=== PATIENT | male | born 1960 | race Caucasian/White ===

== ENCOUNTER 2016-09-02 20:46 | Emergency (ER) | payer OTHER ==
--- NOTE | ~2016-09-02 | EKG ---
PATIENT: GERALDINE JONES UNIT #: [id number] Ventricular Rate: 87 BPM Atrial Rate: 87 BPM P-R Interval: 182 ms QRS Duration: 90 ms Q-T Interval: 380 ms QTC Calculation(Bezet): 457 ms P [place]: 74 degrees Calculated R [place]: -28 degrees Calculated T [place]: 46 degrees Diagnosis Line: Normal sinus rhythm Diagnosis Line: Normal ECG Diagnosis Line: When compared with ECG of 10-OCT-2015 09:10, Diagnosis Line: No significant change was found Diagnosis Line: Confirmed by JERALD LOCKETT MD ([id number]) on 09/05/2016 Diagnosis Line: 4:01:09 PM INTERPRETING MD: CATHRYN MCDOWELL
--- NOTE | ~2016-09-02 | CR72 ---
[facility] A Service of [facility] & [facility] RADIOLOGY TEXT RESULTS PATIENT: GERALDINE JONES LOCATION: [facility] : 60 UNIT #: [id number] AGE: [address]: Court Goldstein MD SEX: M ORDER DR: [id number] [facility] [address] [place], [place] [address] [id number] E MR#: [id number] Acc #: [id number] NAME: GERALDINE JONES : 1960 SEX: M STUDY DATE/TIME: 09/02/2016 19:18 UNIT: [facility] ROOM: STUDY DESCRIPTION: CR Chest Single View Portable Attending Physician: Court Goldstein M.D. Ordering Physician: Court Goldstein M.D. MEDICAL IMAGING REPORT This report is preliminary unless electronic signature is present EXAM Portable chest 09/02/2016 HISTORY Chest pain and shortness of breath for 1 week with left leg numbness today and slurred speech. FINDINGS A single AP portable view of the chest shows both lungs to be clear. The heart is normal in size. The mediastinal contour is normal. No significant bone abnormalities are seen. IMPRESSION Normal portable chest. Dictated by... Neeraj Suarez M.D. THIS IS AN ELECTRONICALLY VERIFIED REPORT Neeraj Suarez M.D. at 09/03/2016 3:39 PM KRT/pcl TD: 09/02/2016 22:58 JOB #: [id number] MEDICAL IMAGING REPORT Page 1 of 1 COPY
--- NOTE | ~2016-09-02 | CT71 ---
[facility] A Service of [facility] RADIOLOGY TEXT RESULTS PATIENT: GERALDINE JONES LOCATION: [facility] : 60 UNIT #: [id number] AGE: [address]: Court Goldstein MD SEX: M ORDER DR: [id number] [facility] [address] [place], [place] [address] [id number] E MR#: [id number] Acc #: [id number] NAME: GERALDINE JONES : 1960 SEX: M STUDY DATE/TIME: 09/02/2016 20:17 UNIT: [facility] ROOM: STUDY DESCRIPTION: CT Head Wo Contrast Attending Physician: Court Goldstein M.D. Ordering Physician: Court Goldstein M.D. Primary Care Physician: [facility] IMAGING REPORT This report is preliminary unless electronic signature is present EXAM Head CT without contrast, 09/02/2016 HISTORY Chest pain, slurred speech and headache with left lower extremity pain for [address] exam was performed with one or more of the following radiation dose reduction techniques: automatic exposure control, adjustment of mA and/or kV according to patient size, and iterative reconstruction. FINDINGS Multiple axial images were obtained from the skull base to vertex without intravenous contrast administration. The ventricles are normal in size, shape and position. There is persistent decreased density in the periventricular white matter, unchanged compared with 10/10/2015 and suggestive of microvascular white matter ischemic change. Calcifications are seen in the basal ganglia. There is no midline shift. There is no mass or mass effect, hemorrhage or acute infarct. The visualized paranasal sinuses are clear except for a 1 cm polyp or retention cyst in the right maxillary sinus. IMPRESSION Chronic microvascular white matter ischemic changes. No acute intracranial abnormality. Dictated by... Neeraj Suarez M.D. THIS IS AN ELECTRONICALLY VERIFIED REPORT Neeraj Suarez M.D. at 09/03/2016 3:39 PM [facility] A Service of [facility] RADIOLOGY TEXT RESULTS PATIENT: GERALDINE JONES LOCATION: [facility] : 60 UNIT #: [id number] AGE: [address]: Court Goldstein MD SEX: M ORDER DR: [facility]/sonia TD: 09/03/2016 01:42 JOB #: [id number] MEDICAL IMAGING REPORT Page 1 of 1 COPY
[2016-09-02 19:36] LABS: BASOPHIL% 0.6 % (0-2.5); EOSINOPHIL# 0.1 X10e3 (0-0.7); EOSINOPHIL% 2.1 % (0.0-7.0); HEMATOCRIT 40.4 % (38.0-50.0); HEMOGLOBIN 13.4 gm/dL (13.0-16.0); LYMPHOCYTE# 2.3 X10e3 (1.0-3.5); LYMPHOCYTE% 33.7 % (17.0-45.0); MEAN CELL VOLUME 95.6 FL (83-96); MEAN CORPUSCULAR HEMOGLOBIN 31.7 PG (28-34); MEAN CORPUSCULAR HGB CONC 33.2 g/dL (30-36); MEAN PLATELET VOLUME 7.3 FL (6.5-11.5); MONOCYTE# 0.4 X10e3 (0-1.0); MONOCYTE% 5.8 % (3.0-12.0); NEUTROPHIL% 57.8 % (40-75); PLATELET COUNT 235 X10e3 (140-420); RED BLOOD COUNT 4.22 X10e (3.90-5.60); RED CELL DISTRIBUTION WIDTH 14.6 % (11.0-15.5); WHITE BLOOD COUNT 6.9 X10e3 (4.0-10.5)
[2016-09-02 19:38] LABS: DIFF IND NO
[2016-09-02 19:54] LABS: POC - CKMB 5.9 ng/mL (0.0-7.9); POC - TROPONIN <0.05 ng/mL (<=0.05)
[2016-09-02 19:58] LABS: ALBUMIN SERUM 4.5 g/dL (3.5-5.0); BILIRUBIN, DIRECT 0.1 mg/dL (0.0-0.2); BILIRUBIN,INDIRECT 0.7 mg/dL (0.0-0.9); BILIRUBIN,TOTAL 0.8 mg/dL (0.2-2.0); BUN/CREATININE RATIO 15.83; CALCIUM SERUM 9.7 mg/dL (8.4-10.2); CREATININE SERUM 1.2 mg/dL (0.6-1.4); GLOM FILT RATE Estimated 67.7 mL/min (>60); POTASSIUM 3.5 mmol/L (3.5-5.1); PROTEIN TOTAL SERUM 7.8 g/dL (6.0-8.3)
[2016-09-02 20:01] LABS: URINE SOURCE CLEAN CATCH
[2016-09-02 20:11] LABS: URINE APPEARANCE CLEAR; URINE BILIRUBIN NEG (NEG); URINE BLOOD NEG (NEG); URINE COLOR YELLOW; URINE GLUCOSE NEG (NEG); URINE KETONE NEG (NEG); URINE LEUKOCYTE ESTERASE NEG (NEG); URINE NITRATE NEG (NEG); URINE PH 6.5 (5-8); URINE PROTEIN NEG (NEG); URINE SPECIFIC GRAVITY 1.022 (1.003-1.035)
[2016-09-02 20:15] LABS: CULTURE INDICATED? NO
[2016-09-02 20:23] LABS: AMPHETAMINE NEG (NEG); BARBITURATES NEG (NEG); BENZODIAZEPINES NEG (NEG); COCAINE NEG (NEG); MARIJUANA POS (NEG); OPIATES NEG (NEG); TRICYCLIC ANTIDEPRESSANTS NEG (NEG); U METHADONE NEG (NEG)
[~2016-09-02 20:46] MED LIST: ASPIRIN ENTERI325 M1 PO; CLOPIDOGREL75 MG PO; DESYREL100 MG PO; DESYREL50 MG PO; LEVOTHYROXINE100 MCG PO; NAPROSYN-EC500 M1 PO; PAIN RELIEF PM1 EAC2 PO; PREDNISONE10 MG PO; SIMVASTATIN20 MG PO; STOOL SOFTENER100 M1 PO; SYNTHROID0.1 MG PO; VITAMIN D2400 UNIT PO; ZITHROMAX PO; ZOLOFT50 MG PO
[2016-09-02 22:30] LABS: POC - CKMB 5.1 ng/mL (0.0-7.9); POC - TROPONIN <0.05 ng/mL (<=0.05)
== END 2016-09-03 00:50 | disposition home or self-care (01) ==
LOC: CED 20:46
PROVIDERS: Emergency Medicine
DX: R51 Headache (principal); F17.200 Nicotine dependence, unspecified, uncomplicated; Z88.1 Allergy status to other antibiotic agents; Z91.041 Radiographic dye allergy status
CPT/HCPCS: 70450; 71010; 80048; 80076; 80307; 81003; 82553; 83690; 84484; 85025; 93005; 99284